=== PATIENT | female | born 1995 | race Caucasian/White ===

== ENCOUNTER 2018-08-15 10:36 | Observation (INO) | payer MEDICAID, OTHER ==
[~2018-08-15] VITALS: Ht 165.1 cm; Wt 104.5 kg
--- NOTE | 2018-08-15 10:38 | NUR ---
JAGDEEP NUGENT AFTER PT WAS AT [facility] AND STATED THOUGHTS OF SI W/ PLAN TO USE A KNIFGE/OD TO HURT HERSELF. PT STATES SHE HAS HX ANXIETY AND DEPRESSION AND IS CURRENTLY NOT ON ANY MEDICATIONS. VSS BUCKLE STAP[employer]ER 132/92, HR 88, RR 16, 100% RA. FATHER BOBBY AT BEDSIDE. PER PT OKAY TO GIVE BOBBY, PT FATHER UPDATES AT [phone]. PT RESTING ON GURNEY. NADN. PERSONAL BELONGINGS REMOVED AND BAGS 1 OF 1 PLACED IN SECURE LOCKER. ROOM SECURED. SITTER AT BEDSIDE.
--- NOTE | 2018-08-15 10:52 | NUR ---
REPORT GIVEN TO ROSA LYNCH.
--- NOTE | 2018-08-15 10:58 | NUR ---
UDS COLLECTED, LABELED AND WALKED TO LAB.
[2018-08-15 11:35] LABS: AMPHETAMINE SCREEN, URINE Negative (Negative); BARBITURATE SCREEN, URINE Negative (Negative); BENZODIAZEPINE SCREEN, URINE Negative (Negative); CANNABINOID SCREEN, URINE Negative (Negative); COCAINE SCREEN, URINE Negative (Negative); METHADONE SCREEN, URINE Negative (Negative); OPIATE SCREEN, URINE Negative (Negative)
[2018-08-15 11:54] LABS: BASOPHILS # (AUTO) 0.02 x10^3/uL (0-0.1); BASOPHILS % (AUTO) 0 % (0-1); EOSINOPHILS # (AUTO) 0.04 x10^3/uL (0-0.4); EOSINOPHILS % (AUTO) 0 % (1-7); LYMPHOCYTES % (AUTO) 19 % (22-44); MD NO; MEAN CORPUSCULAR HEMOGLOBIN 29.6 pg (27.0-34.8); MEAN CORPUSCULAR HGB CONC 33.9 g/dL (32.4-35.8); MEAN CORPUSCULAR VOLUME 87.2 fL (80-100); MEAN PLATELET VOLUME 7.5 fL (7.4-10.4); MONOCYTES # (AUTO) 0.32 x10^3/uL (0.2-0.8); MONOCYTES % (AUTO) 3 % (2-9); NEUTROPHILS # (AUTO) 7.97 x10^3/uL (1.8-6.8); NEUTROPHILS % (AUTO) 78 % (42-75); PLATELET COUNT 294 x10^3/uL (130-400); RED BLOOD COUNT 5.02 x10^6/uL (3.82-5.3); RED CELL DISTRIBUTION WIDTH 12.3 % (9.6-15.2)
[2018-08-15 12:05] LABS: ALANINE AMINOTRANSFERASE 20 U/L (12-78); ALBUMIN 4.1 g/dL (3.4-5.0); ANION GAP 6 mmol/L (5-15); CALCIUM 8.9 mg/dL (8.5-10.1); CHLORIDE 110 mmol/L (98-107); CREATININE 0.83 mg/dL (0.55-1.02)
[2018-08-15 12:07] LABS: ALKALINE PHOSPHATASE 84 U/L (45-117); BILIRUBIN,TOTAL 0.5 mg/dL (0.2-1.0); TOTAL PROTEIN 7.6 g/dL (6.4-8.2)
[2018-08-15 12:12] LABS: SALICYLATE LEVEL < 1.7 mg/dL (2.8-20.0)
[2018-08-15 12:13] LABS: ACETAMINOPHEN < 2 mcg/mL (10-30)
--- NOTE | 2018-08-15 13:07 | NUR ---
pt resting in bed watching tv with father at bedside. vss. no distress noted. pt provided lunch tray. will continue to monitor.
[2018-08-15] MEDS ORDERED: ACETAMINOPHEN 325 MG TABLET PO PRN (13:30)
[2018-08-15] MEDS ORDERED: ONDANSETRON ODT 4 MG PO PRN (13:30)
--- NOTE | 2018-08-15 13:46 | NUR ---
TP RN: PACKET FAXED TO [facility], PT BEING EVALUATED BY 2N FOR ADMISSION WHEN THEY HAVE A BED OPENING LATER TODAY.
--- NOTE | 2018-08-15 14:08 | NUR ---
pt resting in bed watching tv. vss. no distress noted. pt provided lunch tray. will continue to monitor.
[2018-08-15 15:37] LABS: MICROSCOPIC NOT IND
[2018-08-15 15:40] LABS: CULTURE INDICATED? NO
[2018-08-15 15:47] LABS: HCG UR SG 1.011 (1.003-1.030)
--- NOTE | 2018-08-15 15:50 | NUR ---
pt resting in room wtih lights dimmed. no distress noted. pt states no pain at this time. vss.
--- NOTE | 2018-08-15 16:03 | NUR ---
report given to ROSA fish. pt updated on poc. pt's father updated on poc and instructed to call to clarify visiting procedures. vss. pt ready for transport.
--- NOTE | 2018-08-15 16:04 | NUR ---
Received SBAR report from ROSA Aguirre. Pt will be going to room [id number]
[2018-08-15 17:08] VITALS: BP 119/74
[2018-08-15 19:16] VITALS: BP 119/74
[2018-08-16 06:10] LABS: BASOPHILS # (AUTO) 0.06 x10^3/uL (0-0.1); BASOPHILS % (AUTO) 1 % (0-1); CHLORIDE 109 mmol/L (98-107); EOSINOPHILS % (AUTO) 1 % (1-7); LYMPHOCYTES # (AUTO) 2.61 x10^3/uL (1-3.4); LYMPHOCYTES % (AUTO) 26 % (22-44); MD NO; MEAN CORPUSCULAR HEMOGLOBIN 29.8 pg (27.0-34.8); MEAN CORPUSCULAR HGB CONC 34.1 g/dL (32.4-35.8); MEAN CORPUSCULAR VOLUME 87.6 fL (80-100); MEAN PLATELET VOLUME 7.8 fL (7.4-10.4); MONOCYTES % (AUTO) 5 % (2-9); NEUTROPHILS % (AUTO) 68 % (42-75); PLATELET COUNT 305 x10^3/uL (130-400); RED BLOOD COUNT 4.86 x10^6/uL (3.82-5.3); RED CELL DISTRIBUTION WIDTH 12.1 % (9.6-15.2)
[2018-08-16 06:30] LABS: ANION GAP 5 mmol/L (5-15); CALCIUM 8.9 mg/dL (8.5-10.1); CHOL/HDL RATIO 3.7; CHOLESTEROL, TOTAL 174 mg/dL (140-239); CREATININE 0.93 mg/dL (0.55-1.02); FREE T4 (FREE THYROXINE) 1.19 ng/dL (0.76-1.46); HDL CHOL % 27 % (28-40); HDL CHOLESTEROL (DIRECT) 47 mg/dL (40-60); LDL CHOLESTEROL,CALCULATED 106 mg/dL (54-169); LDL/HDL RATIO 2.3 (0.5-3.0); THYROID STIMULATING HORMONE 0.372 mIU/L (0.358-3.740); TRIGLYCERIDES 104 mg/dL (50-200); VLDL CHOLESTEROL 21 mg/dL (0-25)
[2018-08-16 08:14] VITALS: BP 81/54
[2018-08-16 11:16] VITALS: BP 106/74
[2018-08-16 19:43] VITALS: BP 105/70
[2018-08-16] MEDS ORDERED: DIPHENHYDRAMINE 25 MG CAPSULE PO ONE (22:00)
[2018-08-17 08:00] VITALS: BP 102/65
[2018-08-17 20:00] VITALS: BP 121/77
[2018-08-18 08:10] VITALS: BP 102/69
[2018-08-18 20:27] VITALS: BP 110/72
[2018-08-19 07:34] VITALS: BP 111/72
[2018-08-19 19:23] VITALS: BP 120/88
[2018-08-20 07:39] VITALS: BP 103/70
[2018-08-20 20:25] VITALS: BP 121/78
[2018-08-21 08:01] VITALS: BP 107/72
[2018-08-21 19:45] VITALS: BP 123/79
[2018-08-22 07:36] VITALS: BP 106/69
== END 2018-08-22 12:44 | disposition home or self-care (01) ==
LOC: ED 11:23 → EDIP 12:35 → 2N 17:00
PROVIDERS: ADMIT Internal Medicine; ATTEND Internal Medicine
DX: R45.851 Suicidal ideations (principal); E66.01 Morbid (severe) obesity due to excess calories; D72.829 Elevated white blood cell count, unspecified; D68.59 Other primary thrombophilia; F31.30 Bipolar disorder, current episode depressed, mild or moderate severity, unspecified; F41.9 Anxiety disorder, unspecified; K21.9 Gastro-esophageal reflux disease without esophagitis; K58.9 Irritable bowel syndrome, unspecified; Z81.8 Family history of other mental and behavioral disorders; Z82.49 Family history of ischemic heart disease and other diseases of the circulatory system; Z83.3 Family history of diabetes mellitus; Z88.0 Allergy status to penicillin; Z88.8 Allergy status to other drugs, medicaments and biological substances
CPT/HCPCS: 36415; 80048; 80053; 80061; 80307; 80329; 81003; 81025; 84439; 84443; 85025; 99284; G0378; Q0163; G0480